=== PATIENT | female | born 1965 | race Caucasian/White ===

== ENCOUNTER 2017-10-01 17:36 | Emergency (ER) | payer SELFPAY ==
[~2017-10-01] VITALS: Ht 160 cm; Wt 60.4 kg
[~2017-10-01 17:36] MED LIST: ACYC1CAP16 PO; ALBU0.086 NEB; ALBU8I INH; LORA-392 PO
[2017-10-01 17:38] VITALS: BP 153/67; PULSE 89; RESP 16; TEMP 97.9; O2SAT 98
[2017-10-01] MEDS ORDERED: ALBU8TAB PO (18:03)
[2017-10-01] MEDS ORDERED: LORA2CON PO (18:04)
--- NOTE | 2017-10-01 18:11 | PD ---
HPI Chief Complaint: Numbness/Tingling Time Seen by Provider: 17:45 Travel History International Travel<30 days: No Contact w/Intl Traveler<30days: No Traveled to known affect area: No History of Present Illness HPI SINCE TUESDAY PATIENT HAS HAD DIFFICULTY CLOSING HER RIGHT EYE AND SEEMS TO HAVE A DROOPY FACE ON RIGHT SIDE...NO ALLEVIATING/AGGRAVATING FACTORS...DENIES ASSOC FACTORS SUCH CARR/CP/BACKPAIN/ABDPAIN/LATERALIZING WEAKNESS TO EXTREMITIES/DIFFICULTY SPEAKING OR WALKING....PATIENT SAW PCP WHO DX WITH BRONCHITIS PRIOR TO THIS AND GAVE HER A PREDNISONE PACK. BUT SHE IS COMPLAINING OF DRY EYE TO RIGHT SIDE. PFSH Past Medical History Hx Anticoagulant Therapy: No Asthma: Yes Anxiety: Yes Depression: Yes Cardiovascular Problems: No Chemotherapy: No Cerebrovascular Accident: No Diabetes: No Diminished Hearing: No Gastrointestinal Disorders: Yes GERD: Yes Genitourinary: Yes Hiatal Hernia: Yes Hypertension: No Musculoskeletal: No Neurologic: No Respiratory: Yes (ASTHMA) Immunizations Current: No Tetanus Vaccination: > 5 Years Influenza Vaccination: Yes PNEUMOCCOCAL Vaccine (Year): 3 ?: Not Menopausal: Yes : 3 Para: 1 Miscarriage: 1 : 1 Past Surgical History Abdominal Surgery: Yes (2001 APPENDECTOMY) Appendectomy: Yes Gynecologic Surgery: Yes (LAP HYSTERECTOMY SEP 25) Hysterectomy: Yes Neurologic Surgery: No Tonsillectomy: Yes Other Surgery: Yes Family History Family Myocardial Infarction: Yes Social History Alcohol Use: Yes (SOCIALLY) Tobacco Use: Yes Substance Use: No Allergies-Medications (Allergen,Severity, Reaction): Coded Allergies: bupropion (Unverified Allergy, Severe, 10/01/17) "I WENT CRAZY, I CRIED FOR 36 HOURS" penicillin G (Unverified Allergy, Severe, HIVES, 10/01/17) Reported Meds & Prescriptions Reported Meds & Active Scripts Active Doxycycline Hyclate 100 Mg Cap 100 Mg PO BID 7 Days Reported Lorazepam Intensol Liq (Lorazepam) 2 Mg/Ml Conc 0.25 Mg PO BID PRN Albuterol ER 12 HR (Albuterol Sulfate) 8 Mg Tab 8 Mg PO BID Do not crush or chew. Review of Systems Except as stated in HPI: all other systems reviewed are Neg General / Constitutional: No: Fever Eyes: No: Visual changes HENT: No: Headaches Cardiovascular: No: Chest Pain or Discomfort Respiratory: No: Shortness of Breath Gastrointestinal: No: Abdominal Pain Genitourinary: No: Dysuria Musculoskeletal: No: Pain Skin: No Rash Neurologic: Positive: Focal Abnormalities Psychiatric: No: Depression Endocrine: No: Polydipsia Hematologic/Lymphatic: No: Easy Bruising Physical Exam Narrative GENERAL: SKIN: Warm and dry. HEAD: Atraumatic. Normocephalic. EYES: Pupils equal and round. No scleral icterus. No injection or drainage. RT SIDED AMBLYOPIA (PATIENT AND STATE THIS IS CHRONIC) ENT: No nasal bleeding or discharge. Mucous membranes pink and moist. NECK: Trachea midline. No JVD. CARDIOVASCULAR: Regular rate and rhythm. RESPIRATORY: No accessory muscle use. Clear to auscultation. Breath sounds equal bilaterally. GASTROINTESTINAL: Abdomen soft, non-tender, nondistended. MUSCULOSKELETAL: Extremities without clubbing, cyanosis, or edema. No obvious deformities. NEUROLOGICAL: Awake and alert. RIGHT CRANIAL 7 PARTIAL DEFICIT WITH PARALYSIS OF FRONTALIS, AND FLATENNING OF RIGHT NASOLABIAL REGION, PATIENT IS ABLE TO CLOSE HER RIGHT SUPERIOR EYELID, Motor grossly within normal limits. Five out of 5 muscle strength in the arms and legs. Normal speech. PSYCHIATRIC: Appropriate mood and affect; insight and judgment normal. 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 Diagnosis Primary Impression: Davey's palsy Patient Instructions: Davey Palsy (ED), General Instructions Scripts Doxycycline Hyclate (Doxycycline Hyclate) 100 Mg Cap 100 MG PO BID for Infection for 7 Days, #14 CAP 0 Refills Prov: Braydon Gaitan MD 10/01/17 Disposition: 01 DISCHARGE HOME Condition: Stable Braydon Gaitan MD Oct 01, 2017 18:11
[2017-10-01] MEDS ORDERED: DOXY100C PO (19:12)
--- NOTE | 2017-10-01 19:38 | RADRPT ---
EXAM DATE/TIME: 10/01/2017 19:17 [facility] COMPARISON: Report only CT BRAIN W/O CONTRAST, March 28, 2013, 13:20. INDICATIONS : Right facial droop for 2 days. RADIATION DOSE: 56.55 CTDIvol (mGy) MEDICAL HISTORY : None SURGICAL HISTORY : Hysterectomy. Appendectomy. ENCOUNTER: Initial ACUITY: 2 days PAIN SCALE: 0/10 LOCATION: cranial TECHNIQUE: Multiple contiguous axial images were obtained of the head. Using automated exposure control and adj ustment of the mA and/or kV according to patient size, radiation dose was kept as low as reasonably a chievable to obtain optimal diagnostic quality images. DICOM format image data is available electro nically for review and comparison. FINDINGS: CEREBRUM: The ventricles are normal for age. No evidence of midline shift, mass lesion, hemorrhage or acute in farction. No extra-axial fluid collections are seen. POSTERIOR FOSSA: The cerebellum and brainstem are intact. The 4th ventricle is midline. The cerebellopontine angle i s unremarkable. EXTRACRANIAL: The visualized portion of the orbits is intact. SKULL: The calvaria is intact. No evidence of skull fracture. CONCLUSION: Negative noncontrast head CT. Tim Avilez MD on October 01, 2017 at 19:35 Board Certified Radiologist. This report was verified electronically.
[2017-10-01 19:54] VITALS: BP 119/73
== END 2017-10-01 19:56 | disposition home or self-care (01) ==
LOC: PHED 17:36
DX: G51.0 Bell's palsy (principal); K21.9 Gastro-esophageal reflux disease without esophagitis; J45.909 Unspecified asthma, uncomplicated; F17.200 Nicotine dependence, unspecified, uncomplicated
CPT/HCPCS: 70450; 99284